=== PATIENT | male | born 1985 | race Caucasian/White ===

== ENCOUNTER 2017-07-30 08:15 | Emergency (ER) | payer OTHER ==
[~2017-07-30] VITALS: Ht 175.3 cm; Wt 76.2 kg
[2017-07-30 08:23] VITALS: BP 110/68
[2017-07-30] MEDS ORDERED: LIDOCAINE 1% Multi-Dose 20 ML VIAL. IJ ONE (09:00)
--- NOTE | 2017-07-30 09:05 | PHYS DOC ---
Past History Past Medical History: No Pertinent History Past Surgical History: No Surgical History Alcohol Use: None Drug Use: None Adult General Chief Complaint Chief Complaint: HEMORRHOIDS HPI HPI 32-year-old male patient state he had intermittent episodes of constipation and diarrhea for the last 1 week and for the last 4 days had painful area in his anal without bleeding and thinks he has hemorrhoid. Patient denies history of the same problem, fever and chills, abdominal pain, nausea and vomiting. Review of Systems Review of Systems Constitutional: Denies fever or chills [] Eyes: Denies change in visual acuity, redness, or eye pain [] HENT: Denies nasal congestion or sore throat [] Respiratory: Denies cough or shortness of breath [] Cardiovascular: No additional information not addressed in HPI [] GI: Denies abdominal pain, nausea, vomiting, bloody stools or diarrhea [] : Denies dysuria or hematuria [] Musculoskeletal: Denies back pain or joint pain [] Integument: Denies rash or skin lesions [] Neurologic: Denies headache, focal weakness or sensory changes [] Endocrine: Denies polyuria or polydipsia [] All other systems were reviewed and found to be within normal limits, except as documented in this note. Current Medications Current Medications Current Medications Medications (Trade) Dose Ordered Sig/Drake Start Time Stop Time Status Last Admin Dose Admin Lidocaine HCl 20 ml 1X ONCE 07/30/17 09:00 07/30/17 09:01 DC Allergies Allergies Allergies Coded Allergies Type Severity Reaction Last Updated Verified No Known Drug Allergies 07/30/17 No Physical Exam Physical Exam Constitutional: Well developed, well nourished, mild distress, non-toxic appearance. [] HENT: Normocephalic, atraumatic Eyes: PERRLA, EOMI, conjunctiva normal, no discharge. [] Neck: Normal range of motion, no tenderness, supple, no stridor. [] Cardiovascular:Heart rate regular rhythm, no murmur [] Lungs & Thorax: Bilateral breath sounds clear to auscultation [] Abdomen: Bowel sounds normal, soft, no tenderness, no masses, no pulsatile masses. 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 [] Back: No tenderness, no CVA tenderness. [] Extremities: No tenderness, no cyanosis, no clubbing, ROM intact, no edema. [] Neurologic: Alert and oriented X 3, normal motor function, normal sensory function, no focal deficits noted. [] Psychologic: Affect normal, judgement normal, mood normal. [] Current Patient Data Vital Signs Vital Signs Date Time Temp Pulse Resp B/P (MAP) Pulse Ox O2 Delivery O2 Flow Rate FiO2 07/30/17 08:23 98.7 63 16 98 Room Air EKG EKG [] Radiology/Procedures Radiology/Procedures [] Course & Med Decision Making Course & Med Decision Making Evaluation of patient in ER showed 31-year-old male patient presented to ER with a thrombosed hemorrhoid that was drained in ER and patient felt better. Patient instructed to take sitz bath and follow up with his primary care physician and avoid of constipation and diarrhea. Dragon Disclaimer Dragon Disclaimer This electronic medical record was generated, in whole or in part, using a voice recognition dictation system. - Procedure: thrombosed hemorrhoid drainage After putting patient in knee-chest position thrombosed hemorrhoid at 5:00 was injected with 1% lidocaine and opened with 0.5 cm transverse incision and large blood clot was drained. Patient tolerated procedure well. Departure Departure: Impression: Primary Impression: Thrombosed external hemorrhoid Disposition: HOME, SELF-CARE (At 0902) Condition: IMPROVED Referrals: PCP,UNKNOWN (PCP) Patient Instructions: Hemorrhoids, Sitz Bath Additional Instructions: Take sitz baths 3 or 4 times a day Avoid of constipation and diarrhea JOSH CAVAZOS MD July 30, 2017 09:05
== END 2017-07-30 09:07 | disposition home or self-care (01) ==
LOC: ER 08:15
DX: K64.5 Perianal venous thrombosis (principal)
CPT/HCPCS: 46083; 99284